=== PATIENT | female | born 1960 | race Caucasian/White ===

== ENCOUNTER 2017-11-21 08:27 | Inpatient (IN) | payer MEDICAID ==
[2017-11-21] VITALS (16 sets, daily range): BP systolic 102–127; BP diastolic 55–82
[~2017-11-21] VITALS: Ht 157.5 cm; Wt 84.8 kg
[2017-11-21] MEDS: K, MAG and/or Phos replacement - Verify level? MC SCH (08:00)
[2017-11-21] MEDS: pantoprazole 40 MG vial IV SCH (08:00)
[2017-11-21] MEDS ORDERED: normal saline 1000ML IV soln IV ONE (08:45)
[2017-11-21 09:45] LABS: BASOPHILS % (AUTO) 0.1 % (0-1); EOSINOPHILS % (AUTO) 0.1 % (0-6); HEMATOCRIT 42.4 % (35.0-45.0); HEMOGLOBIN 14.4 g/dl (12.0-16.0); LYMPHOCYTES # (AUTO) 0.8 X10'3 (1.1-4.8); MEAN CORPUSCULAR HEMOGLOBIN 29.2 PG (27.0-31.0); MEAN CORPUSCULAR HGB CONC 33.9 % (33.0-36.5); MEAN CORPUSCULAR VOLUME 86.1 FL (78-98); MEAN PLATELET VOLUME 8.3 FL (7.4-10.4); MONOCYTES # (AUTO) 0.3 X10'3 (0-0.9); NEUTROPHILS # (AUTO) 11.9 X10'3 (1.8-7.7); NEUTROPHILS % (AUTO) 91.8 % (42-75); PLATELET COUNT 276 X10'3 (140-440); RED BLOOD COUNT 4.92 X10'6 (4.20-5.60); RED CELL DISTRIBUTION WIDTH 14.8 % (11.5-14.5); WHITE BLOOD COUNT 12.9 X10'3 (4.5-11.0)
[2017-11-21 09:46] LABS: PARTIAL THROMBOPLASTIN TIME 32 SECONDS (22-32); PROTHROMBIN TIME 10.8 SECONDS (9.0-12.0)
[2017-11-21] MEDS ORDERED: BUPIVAcaine/PF 2.5mg/ml (0.25%) 10ml vial ONE (09:51)
[2017-11-21] MEDS ORDERED: LIDOcaine 1% 30ml preserv. free vial ONE (09:51)
[2017-11-21 09:52] LABS: ALANINE AMINOTRANSFERASE 17 U/L (12-78); ALBUMIN 2.3 G/DL (3.4-5.0); ALBUMIN/GLOBULIN RATIO 0.6 (1.1-1.5); ALKALINE PHOSPHATASE 85 IU/L (46-116); ANION GAP 9 (8-16); ASPARTATE AMINO TRANSFERASE 22 U/L (10-37); BILIRUBIN,TOTAL 0.5 MG/DL (0.1-1.0); BLOOD UREA NITROGEN 36 MG/DL (7-18); BUN/CREATININE RATIO 35.3 (6.6-38.0); CHLORIDE 98 MMOL/L (99-107); CREATININE 1.02 MG/DL (0.40-0.90); GLUCOSE 116 MG/DL (70-104); MAGNESIUM 1.9 MG/DL (1.5-2.4); POTASSIUM 3.2 MMOL/L (3.5-5.1); SODIUM 136 MMOL/L (135-145); TOTAL CARBON DIOXIDE 28.8 MMOL/L (24-32); TOTAL PROTEIN 6.3 G/DL (6.4-8.2); eGFR 56 ML/MIN
[2017-11-21] MEDS ORDERED: LIDOcaine 1%/PF (10mg/ml) 5ml vial ONE ×2 (09:54→10:20)
[2017-11-21 10:00] LABS: PLATELET ESTIMATE NORMAL; TOTAL CELLS COUNTED 100
[2017-11-21] MEDS ORDERED: ringers solution, lacted 1,000 ML IV ONE (10:04)
[2017-11-21] MEDS ORDERED: meperidine/PF 25mg/ml syringe IV PRN (10:05)
[2017-11-21] MEDS ORDERED: proMETHazine 25mg rectal suppository RC PRN (10:05)
[2017-11-21] MEDS ORDERED: fentaNYL/PF 50MCG/1 ML 2ML syringe IV PRN ×2 (10:05)
[2017-11-21] MEDS ORDERED: proCHLORperazine 10 MG/2 ml inj IV PRN (10:05)
[2017-11-21] MEDS ORDERED: ondansetron/PF 4mg/2ml inj IV PRN ×2 (10:05→16:05)
[2017-11-21] MEDS ORDERED: HYDROmorphone inj. 0.5 MG/0.5 ML DISP.SYRIN IV PRN ×2 (10:05)
[2017-11-21] MEDS ORDERED: hydrALAZINE 20mg/ml inj. IV PRN (10:05)
[2017-11-21] MEDS ORDERED: labetalol 20mg/4ml (5mg/ml) syringe IV PRN (10:05)
[2017-11-21] MEDS ORDERED: phenylephrine 10mg/ml inj IV ONE ×2 (10:15→10:25)
[2017-11-21] MEDS ORDERED: neostigmine methylsulfate 1 MG/ML 10ml vial ONE (10:15)
[2017-11-21] MEDS ORDERED: glycopyrrolate 0.2mg/ml inj ONE (10:15)
[2017-11-21] MEDS ORDERED: ondansetron/PF 4mg/2ml inj ONE (10:15)
[2017-11-21] MEDS ORDERED: sevoflurane 250ml liquid IH ONE (10:15)
[2017-11-21] MEDS ORDERED: rocuronium 10mg/ml inj IV ONE (10:20)
[2017-11-21] MEDS ORDERED: ePHEDrine 50MG/ML INJ. ONE (10:25)
[2017-11-21] MEDS ORDERED: midazolam 2 mg/2 ml injection ONE ×2 (10:25→13:16)
[2017-11-21] MEDS ORDERED: propofol inj 20 ML IV ONE (10:25)
[2017-11-21] MEDS ORDERED: dexamethasone sod phosphate 4mg/ml inj. ONE (10:25)
[2017-11-21] MEDS ORDERED: LIDOcaine 2% (20mg/ml) 5ml vial ONE (10:25)
[2017-11-21] MEDS ORDERED: HYDROmorphone 1 mg/ml syringe ONE ×2 (10:26→11:11)
[2017-11-21] MEDS ORDERED: ceFOXitin 1000 MG inj ONE (11:13)
[2017-11-21] MEDS ORDERED: ROPIVAcaine 0.5% (5mg/ml) 30ml vial ONE (11:17)
[2017-11-21] MEDS ORDERED: CADD PCA waste documentation MC PRN (14:05)
[2017-11-21] MEDS: Potassium Cl inj 20 MEQ in ringers solution, lacted 1,000 ML IV SCH ×2 (14:05→22:10)
[2017-11-21] MEDS ORDERED: naloxone 0.4 mg/ml inj IV PRN (14:05)
[2017-11-21] MEDS: propofol 1000mg/100ml bottle 100 ML IV PRN ×2 (14:19→15:43)
[2017-11-21] MEDS: HYDROmorphone/NS 1 mg/ml CADD 50 ML IV SCH (15:00)
[2017-11-21] MEDS ORDERED: sodium phosphate inj. 15 MMOL in dextrose 5%-water 150 ML IV PRN (16:05)
[2017-11-21] MEDS ORDERED: Neutra Phos packet PO PRN (16:05)
[2017-11-21] MEDS ORDERED: acetaminophen 325mg tablet PO PRN ×2 (16:05)
[2017-11-21] MEDS ORDERED: potassium Cl 20 mEq SR tablet PO PRN (16:05)
[2017-11-21] MEDS ORDERED: sodium phosphate inj. 30 MMOL in dextrose 5%-water 250 ML IV PRN (16:05)
[2017-11-21] MEDS ORDERED: magnesium 2GM in 50ml NS 50 ML IV PRN (16:05)
[2017-11-21] MEDS ORDERED: magnesium Cl slow-release 64mg tablet PO PRN (16:05)
[2017-11-21] MEDS ORDERED: ipratropium/albuterol 3ml nebule NEB PRN (16:05)
[2017-11-21] MEDS ORDERED: magnesium 4gm in 100ml NS 100 ML IV PRN (16:05)
[2017-11-21] MEDS: normal saline 1000ml 1,000 ML IV SCH ×2 (16:38→23:00)
[2017-11-21 17:40] LABS: ABG BASE EXCESS -7.3 mmol/L (-2.0-3.0); ABG OXYGEN SATURATION 97.5 % (95-98); ABG PCO2 (T) 21.9 mmHg (32.0-45.0); ABG PH (T) 7.453 (7.350-7.450); ABG PO2 (T) 102.4 mmHg (83-108); FCOHb 0.1 % (0.5-1.5); FLOW 55 L/min; FMetHb 0.3 % (0.3-1.12); FO2Hb 97.1 % (94-100); MINUTE VOLUME 10 L/min; PEEP 5 cm H2O; RESPIRATORY RATE 16 b/min; RESPIRATORY RATE (OBSERVED) 24 b/min; TIDAL VOLUME 500 mL; TOTAL HEMOGLOBIN 10.8 G/dl (12.0-16.0)
[2017-11-21 17:45] LABS: OXYGEN SATURATION (MIXED VEN) 67.5 % (60-80); PO2 MIXED VENOUS (TEMP COR) 33.7 mmHg (35-46)
[2017-11-21] MEDS: heparin, porcine 5000 units/ml vial SQ SCH (19:35)
[2017-11-21] MEDS ORDERED: propofol 1000mg/100ml bottle 100 ML IV PRN (19:35)
[2017-11-21] MEDS: FENTANYL-0.9 % NACL/PF 100 ML IV PRN (19:52)
[2017-11-21] MEDS: midazolam 100mg in NS 100ml 100 ML IV PRN (19:53)
[2017-11-21] MEDS ORDERED: piperacillin/tazo 3.375gm/50ml 50 ML IV SCH (20:00)
[2017-11-21 20:06] LABS: CLARITY,URINE SLIGHTLY CLOUDY (Clear); COLOR,URINE YELLOW (Yellow); GLUCOSE, URINE NEGATIVE (Neg); KETONES,URINE NEGATIVE (Neg); LEUKOCYTE ESTERASE ,URINE NEGATIVE (Neg); NITRITES, URINE NEGATIVE (Neg); OCCULT BLOOD,URINE MODERATE (Neg); PH,URINE 5.5 (4.8-8.0); PROTEIN,URINE 100 mg/dl (Neg); UROBILINOGEN,URINE 0.2 E.U/dL (0.2-1.0)
[2017-11-21 20:10] LABS: UA COLLECTION TYPE CLN CATCH MIDSTREAM
[2017-11-21 20:13] LABS: WBC,URINE NONE SEEN /HPF (0-4)
[2017-11-21 20:14] LABS: BACTERIA,URINE FEW /HPF (Neg); MUCUS STRANDS NONE SEEN /LPF (Neg); SQUAMOUS EPITHELIAL CELL,UR NONE SEEN /LPF (FEW)
[2017-11-21 20:15] LABS: AMORPHOUS URATES 3+
[2017-11-21] MEDS ORDERED: acetaminophen 650mg rectal suppository RC ONE (21:00)
[2017-11-22] VITALS (24 sets, daily range): BP systolic 93–117; BP diastolic 55–77
[2017-11-22 03:49] LABS: BASOPHILS % (AUTO) 0.1 % (0-1); EOSINOPHILS % (AUTO) 0.1 % (0-6); HEMOGLOBIN 11.8 g/dl (12.0-16.0); LYMPHOCYTES # (AUTO) 0.6 X10'3 (1.1-4.8); LYMPHOCYTES % (AUTO) 7.3 % (21-51); MEAN CORPUSCULAR HEMOGLOBIN 29.1 PG (27.0-31.0); MEAN CORPUSCULAR HGB CONC 33.6 % (33.0-36.5); MEAN CORPUSCULAR VOLUME 86.5 FL (78-98); MEAN PLATELET VOLUME 7.8 FL (7.4-10.4); MONOCYTES # (AUTO) 0.5 X10'3 (0-0.9); MONOCYTES % (AUTO) 5.8 % (2-12); NEUTROPHILS # (AUTO) 7.5 X10'3 (1.8-7.7); NEUTROPHILS % (AUTO) 86.7 % (42-75); PLATELET COUNT 257 X10'3 (140-440); RED BLOOD COUNT 4.05 X10'6 (4.20-5.60); RED CELL DISTRIBUTION WIDTH 14.9 % (11.5-14.5); WHITE BLOOD COUNT 8.6 X10'3 (4.5-11.0)
[2017-11-22 03:56] LABS: ABG BASE EXCESS 0.4 mmol/L (-2.0-3.0); ABG HCO3 25.3 mmol/L (22.0-26.0); ABG PCO2 (T) 42.4 mmHg (32.0-45.0); ABG PH (T) 7.396 (7.350-7.450); ABG PO2 (T) 69.7 mmHg (83-108); FCOHb 0.5 % (0.5-1.5); FMetHb 0.3 % (0.3-1.12); FO2Hb 92.3 % (94-100); PATIENT TEMPERATURE 37.3; PEEP 5 cm H2O; RESPIRATORY RATE 14 b/min; TIDAL VOLUME 500 mL; TOTAL HEMOGLOBIN 12.3 G/dl (12.0-16.0)
[2017-11-22 03:57] LABS: ALANINE AMINOTRANSFERASE 14 U/L (12-78); ALBUMIN 1.5 G/DL (3.4-5.0); ALBUMIN/GLOBULIN RATIO 0.4 (1.1-1.5); ALKALINE PHOSPHATASE 71 IU/L (46-116); ANION GAP 8 (8-16); ASPARTATE AMINO TRANSFERASE 20 U/L (10-37); BILIRUBIN,TOTAL 0.5 MG/DL (0.1-1.0); BLOOD UREA NITROGEN 40 MG/DL (7-18); BUN/CREATININE RATIO 22.5 (6.6-38.0); CALCIUM 7.8 MG/DL (8.5-10.1); CHLORIDE 104 MMOL/L (99-107); CREATININE 1.78 MG/DL (0.40-0.90); GLUCOSE 124 MG/DL (70-104); MAGNESIUM 1.8 MG/DL (1.5-2.4); PHOSPHORUS 4.2 MG/DL (2.3-4.5); POTASSIUM 4.2 MMOL/L (3.5-5.1); SODIUM 138 MMOL/L (135-145); TOTAL CARBON DIOXIDE 25.9 MMOL/L (24-32); TOTAL PROTEIN 5.1 G/DL (6.4-8.2); eGFR 29 ML/MIN
[2017-11-22 04:19] LABS: PARTIAL THROMBOPLASTIN TIME 33 SECONDS (22-32); PROTHROMBIN TIME 10.3 SECONDS (9.0-12.0)
[2017-11-22 05:25] LABS: PLATELET ESTIMATE NORMAL; TOTAL CELLS COUNTED 100
[2017-11-22] MEDS: normal saline 1000ml 1,000 ML IV SCH ×3 (05:40→15:00)
[2017-11-22] MEDS: Potassium Cl inj 20 MEQ in ringers solution, lacted 1,000 ML IV SCH ×2 (06:15→14:20)
[2017-11-22] MEDS: K, MAG and/or Phos replacement - Verify level? MC SCH (08:00)
[2017-11-22] MEDS: pantoprazole 40 MG vial IV SCH (08:03)
[2017-11-22] MEDS: heparin, porcine 5000 units/ml vial SQ SCH ×2 (08:03→20:17)
[2017-11-22] MEDS: piperacillin/tazo 3.375gm/50ml 50 ML IV SCH ×3 (08:03→15:57)
[2017-11-22] MEDS ORDERED: UNABLE TO OBTAIN (11:27)
[2017-11-22] MEDS ORDERED: mineral oil/petrolatum ophthal oint EACHEYE SCH (14:00)
[2017-11-22] MEDS: mineral oil/petrolatum ophthal oint EACHEYE SCH ×2 (15:57→20:17)
[2017-11-23] VITALS (24 sets, daily range): BP systolic 96–146; BP diastolic 51–94
[2017-11-23] MEDS: midazolam 100mg in NS 100ml 100 ML IV PRN (00:16)
[2017-11-23] MEDS: FENTANYL-0.9 % NACL/PF 100 ML IV PRN ×2 (00:17→17:55)
[2017-11-23] MEDS: piperacillin/tazo 3.375gm/50ml 50 ML IV SCH ×3 (00:17→15:56)
[2017-11-23] MEDS: normal saline 1000ml 1,000 ML IV SCH ×4 (01:44→20:35)
[2017-11-23] MEDS: mineral oil/petrolatum ophthal oint EACHEYE SCH ×4 (01:55→20:00)
[2017-11-23 03:21] LABS: BASOPHILS % (AUTO) 0.2 % (0-1); EOSINOPHILS # (AUTO) 0.1 X10'3 (0-0.9); HEMATOCRIT 27.6 % (35.0-45.0); HEMOGLOBIN 9.2 g/dl (12.0-16.0); LYMPHOCYTES # (AUTO) 0.7 X10'3 (1.1-4.8); LYMPHOCYTES % (AUTO) 10.8 % (21-51); MEAN CORPUSCULAR HGB CONC 33.3 % (33.0-36.5); MEAN CORPUSCULAR VOLUME 87.1 FL (78-98); MEAN PLATELET VOLUME 8.1 FL (7.4-10.4); MONOCYTES # (AUTO) 0.6 X10'3 (0-0.9); MONOCYTES % (AUTO) 8.6 % (2-12); NEUTROPHILS # (AUTO) 5.2 X10'3 (1.8-7.7); NEUTROPHILS % (AUTO) 78.4 % (42-75); PLATELET COUNT 209 X10'3 (140-440); RED BLOOD COUNT 3.16 X10'6 (4.20-5.60); WHITE BLOOD COUNT 6.7 X10'3 (4.5-11.0)
[2017-11-23 03:31] LABS: INR 0.9 INR; PARTIAL THROMBOPLASTIN TIME 31 SECONDS (22-32); PROTHROMBIN TIME 9.5 SECONDS (9.0-12.0)
[2017-11-23 03:46] LABS: ALANINE AMINOTRANSFERASE 12 U/L (12-78); ALBUMIN 1.3 G/DL (3.4-5.0); ALBUMIN/GLOBULIN RATIO 0.4 (1.1-1.5); ALKALINE PHOSPHATASE 61 IU/L (46-116); ANION GAP 7 (8-16); ASPARTATE AMINO TRANSFERASE 20 U/L (10-37); BILIRUBIN,TOTAL 0.3 MG/DL (0.1-1.0); BLOOD UREA NITROGEN 29 MG/DL (7-18); BUN/CREATININE RATIO 26.9 (6.6-38.0); CALCIUM 7.4 MG/DL (8.5-10.1); CHLORIDE 108 MMOL/L (99-107); CREATININE 1.08 MG/DL (0.40-0.90); GLUCOSE 83 MG/DL (70-104); MAGNESIUM 2.2 MG/DL (1.5-2.4); PHOSPHORUS 2.6 MG/DL (2.3-4.5); POTASSIUM 3.7 MMOL/L (3.5-5.1); SODIUM 140 MMOL/L (135-145); TOTAL CARBON DIOXIDE 24.8 MMOL/L (24-32); TOTAL PROTEIN 4.9 G/DL (6.4-8.2); eGFR 52 ML/MIN
[2017-11-23 04:11] LABS: ABG BASE EXCESS -1.9 mmol/L (-2.0-3.0); ABG HCO3 23.3 mmol/L (22.0-26.0); ABG OXYGEN SATURATION 95.9 % (95-98); ABG PCO2 (T) 40.8 mmHg (32.0-45.0); ABG PH (T) 7.373 (7.350-7.450); ABG PO2 (T) 88.7 mmHg (83-108); FCOHb 0.3 % (0.5-1.5); FMetHb 0.1 % (0.3-1.12); FO2Hb 95.5 % (94-100); MINUTE VOLUME 6 L/min; PATIENT TEMPERATURE 36.7; PEEP 5 cm H2O; RESPIRATORY RATE (OBSERVED) 12 b/min; TOTAL HEMOGLOBIN 7.8 G/dl (12.0-16.0)
[2017-11-23] MEDS: K, MAG and/or Phos replacement - Verify level? MC SCH (08:00)
[2017-11-23] MEDS: heparin, porcine 5000 units/ml vial SQ SCH ×2 (08:05→20:34)
[2017-11-23] MEDS: pantoprazole 40 MG vial IV SCH (08:05)
[2017-11-24] VITALS (18 sets, daily range): BP systolic 116–174; BP diastolic 67–93
[2017-11-24] MEDS: piperacillin/tazo 3.375gm/50ml 50 ML IV SCH ×4 (00:11→23:56)
[2017-11-24] MEDS: mineral oil/petrolatum ophthal oint EACHEYE SCH ×2 (02:00→07:36)
[2017-11-24] MEDS: normal saline 1000ml 1,000 ML IV SCH ×3 (03:52→23:52)
[2017-11-24 04:30] LABS: BASOPHILS % (AUTO) 0.2 % (0-1); EOSINOPHILS # (AUTO) 0.3 X10'3 (0-0.9); EOSINOPHILS % (AUTO) 3.2 % (0-6); HEMATOCRIT 28.6 % (35.0-45.0); HEMOGLOBIN 9.6 g/dl (12.0-16.0); LYMPHOCYTES # (AUTO) 0.9 X10'3 (1.1-4.8); LYMPHOCYTES % (AUTO) 10.6 % (21-51); MEAN CORPUSCULAR HEMOGLOBIN 28.8 PG (27.0-31.0); MEAN CORPUSCULAR HGB CONC 33.4 % (33.0-36.5); MEAN CORPUSCULAR VOLUME 86.2 FL (78-98); MEAN PLATELET VOLUME 7.1 FL (7.4-10.4); MONOCYTES # (AUTO) 0.7 X10'3 (0-0.9); MONOCYTES % (AUTO) 8.5 % (2-12); NEUTROPHILS # (AUTO) 6.3 X10'3 (1.8-7.7); NEUTROPHILS % (AUTO) 77.5 % (42-75); PLATELET COUNT 256 X10'3 (140-440); RED BLOOD COUNT 3.32 X10'6 (4.20-5.60); RED CELL DISTRIBUTION WIDTH 15.1 % (11.5-14.5); WHITE BLOOD COUNT 8.2 X10'3 (4.5-11.0)
[2017-11-24 04:38] LABS: INR 0.9 INR; PARTIAL THROMBOPLASTIN TIME 27 SECONDS (22-32); PROTHROMBIN TIME 9.4 SECONDS (9.0-12.0)
[2017-11-24 04:44] LABS: ALANINE AMINOTRANSFERASE 13 U/L (12-78); ALBUMIN 1.4 G/DL (3.4-5.0); ALBUMIN/GLOBULIN RATIO 0.4 (1.1-1.5); ALKALINE PHOSPHATASE 65 IU/L (46-116); ANION GAP 11 (8-16); ASPARTATE AMINO TRANSFERASE 18 U/L (10-37); BILIRUBIN,TOTAL 0.4 MG/DL (0.1-1.0); BLOOD UREA NITROGEN 21 MG/DL (7-18); BUN/CREATININE RATIO 27.6 (6.6-38.0); CALCIUM 7.7 MG/DL (8.5-10.1); CHLORIDE 109 MMOL/L (99-107); CREATININE 0.76 MG/DL (0.40-0.90); GLUCOSE 72 MG/DL (70-104); MAGNESIUM 2.1 MG/DL (1.5-2.4); PHOSPHORUS 2.1 MG/DL (2.3-4.5); SODIUM 143 MMOL/L (135-145); TOTAL CARBON DIOXIDE 23.2 MMOL/L (24-32); TOTAL PROTEIN 5.2 G/DL (6.4-8.2); eGFR 78 ML/MIN
[2017-11-24] MEDS ORDERED: potassium Cl 40MEQ/250ML bag 250 ML IV PRN (05:05)
[2017-11-24] MEDS: K, MAG and/or Phos replacement - Verify level? MC SCH (07:37)
[2017-11-24] MEDS: pantoprazole 40 MG vial IV SCH (07:37)
[2017-11-24] MEDS: heparin, porcine 5000 units/ml vial SQ SCH ×2 (07:40→21:42)
[2017-11-24] MEDS: potassium Cl 40MEQ/250ML bag 250 ML IV PRN ×2 (08:34→10:58)
[2017-11-24] MEDS ORDERED: fentaNYL 10MCG/ML in NS 50ML 50 ML IV SCH (10:40)
[2017-11-24] MEDS: [UNRECOGNIZED DRUG - OTHER] IV SCH ×7 (11:00→23:00)
[2017-11-24] MEDS: FENTANYL IV SCH ×7 (11:00→23:00)
[2017-11-25] VITALS: BP 171/93
[2017-11-25 00:30] VITALS: BP 155/92
[2017-11-25] MEDS: [UNRECOGNIZED DRUG - OTHER] IV SCH ×13 (01:00→23:00)
[2017-11-25] MEDS: FENTANYL IV SCH ×13 (01:00→23:00)
[2017-11-25 05:46] LABS: PARTIAL THROMBOPLASTIN TIME 26 SECONDS (22-32)
[2017-11-25 05:48] LABS: BASOPHILS # (AUTO) 0.1 X10'3 (0-0.2); BASOPHILS % (AUTO) 0.5 % (0-1); EOSINOPHILS # (AUTO) 0.3 X10'3 (0-0.9); EOSINOPHILS % (AUTO) 2.4 % (0-6); HEMATOCRIT 33.4 % (35.0-45.0); HEMOGLOBIN 11.4 g/dl (12.0-16.0); LYMPHOCYTES # (AUTO) 1.3 X10'3 (1.1-4.8); LYMPHOCYTES % (AUTO) 12.7 % (21-51); MEAN CORPUSCULAR HEMOGLOBIN 29.2 PG (27.0-31.0); MEAN CORPUSCULAR HGB CONC 34.2 % (33.0-36.5); MEAN CORPUSCULAR VOLUME 85.4 FL (78-98); MEAN PLATELET VOLUME 7.8 FL (7.4-10.4); MONOCYTES % (AUTO) 9.5 % (2-12); NEUTROPHILS # (AUTO) 7.9 X10'3 (1.8-7.7); NEUTROPHILS % (AUTO) 74.9 % (42-75); PLATELET COUNT 306 X10'3 (140-440); RED BLOOD COUNT 3.91 X10'6 (4.20-5.60); WHITE BLOOD COUNT 10.6 X10'3 (4.5-11.0)
[2017-11-25 06:10] LABS: ALANINE AMINOTRANSFERASE 16 U/L (12-78); ALBUMIN 1.6 G/DL (3.4-5.0); ALBUMIN/GLOBULIN RATIO 0.4 (1.1-1.5); ALKALINE PHOSPHATASE 86 IU/L (46-116); ANION GAP 16 (8-16); ASPARTATE AMINO TRANSFERASE 22 U/L (10-37); BILIRUBIN,TOTAL 0.5 MG/DL (0.1-1.0); BLOOD UREA NITROGEN 10 MG/DL (7-18); BUN/CREATININE RATIO 15.4 (6.6-38.0); CALCIUM 7.8 MG/DL (8.5-10.1); CHLORIDE 105 MMOL/L (99-107); CREATININE 0.65 MG/DL (0.40-0.90); GLUCOSE 88 MG/DL (70-104); MAGNESIUM 1.5 MG/DL (1.5-2.4); PHOSPHORUS 2.1 MG/DL (2.3-4.5); POTASSIUM 3.1 MMOL/L (3.5-5.1); SODIUM 141 MMOL/L (135-145); TOTAL CARBON DIOXIDE 20.2 MMOL/L (24-32); TOTAL PROTEIN 5.9 G/DL (6.4-8.2); eGFR > 90 ML/MIN
[2017-11-25 07:31] VITALS: BP 159/109
[2017-11-25] MEDS: K, MAG and/or Phos replacement - Verify level? MC SCH (08:00)
[2017-11-25] MEDS: pantoprazole 40 MG vial IV SCH (08:44)
[2017-11-25] MEDS: piperacillin/tazo 3.375gm/50ml 50 ML IV SCH ×2 (08:44→15:05)
[2017-11-25] MEDS: potassium Cl 20 mEq SR tablet PO PRN ×3 (08:44→19:34)
[2017-11-25] MEDS: heparin, porcine 5000 units/ml vial SQ SCH ×2 (08:45→19:34)
[2017-11-25] MEDS ORDERED: sodium phosphate inj. 15 MMOL in dextrose 5%-water 145 ML IV ONE (11:05)
[2017-11-25 11:30] VITALS: BP 120/78
[2017-11-25] MEDS: normal saline 1000ml 1,000 ML IV SCH ×2 (13:13→23:12)
[2017-11-25 18:00] VITALS: BP 124/78
[2017-11-25] MEDS: lactobacillus rhamnosus 10,000 MMU CELLS/CAPSULE PO SCH (19:33)
[2017-11-25] MEDS: proCHLORperazine 10 MG/2 ml inj IV PRN (23:25)
[2017-11-26] VITALS: BP 146/99
[2017-11-26] MEDS: piperacillin/tazo 3.375gm/50ml 50 ML IV SCH ×4 (00:14→23:46)
[2017-11-26] MEDS: FENTANYL IV SCH ×12 (01:00→23:00)
[2017-11-26] MEDS: [UNRECOGNIZED DRUG - OTHER] IV SCH ×12 (01:00→23:00)
[2017-11-26 05:21] LABS: BASOPHILS % (AUTO) 0.2 % (0-1); EOSINOPHILS # (AUTO) 0.3 X10'3 (0-0.9); EOSINOPHILS % (AUTO) 2.5 % (0-6); HEMATOCRIT 34.3 % (35.0-45.0); HEMOGLOBIN 11.8 g/dl (12.0-16.0); LYMPHOCYTES # (AUTO) 1.8 X10'3 (1.1-4.8); LYMPHOCYTES % (AUTO) 15.1 % (21-51); MEAN CORPUSCULAR HEMOGLOBIN 29.2 PG (27.0-31.0); MEAN CORPUSCULAR HGB CONC 34.4 % (33.0-36.5); MEAN CORPUSCULAR VOLUME 84.9 FL (78-98); MEAN PLATELET VOLUME 7.6 FL (7.4-10.4); MONOCYTES # (AUTO) 0.7 X10'3 (0-0.9); MONOCYTES % (AUTO) 5.7 % (2-12); NEUTROPHILS # (AUTO) 8.9 X10'3 (1.8-7.7); NEUTROPHILS % (AUTO) 76.5 % (42-75); PLATELET COUNT 343 X10'3 (140-440); RED BLOOD COUNT 4.04 X10'6 (4.20-5.60); WHITE BLOOD COUNT 11.6 X10'3 (4.5-11.0)
[2017-11-26 05:26] LABS: PARTIAL THROMBOPLASTIN TIME 26 SECONDS (22-32); PROTHROMBIN TIME 10.3 SECONDS (9.0-12.0)
[2017-11-26 05:32] LABS: ALANINE AMINOTRANSFERASE 30 U/L (12-78); ALBUMIN 1.8 G/DL (3.4-5.0); ALBUMIN/GLOBULIN RATIO 0.4 (1.1-1.5); ALKALINE PHOSPHATASE 91 IU/L (46-116); ANION GAP 9 (8-16); ASPARTATE AMINO TRANSFERASE 37 U/L (10-37); BILIRUBIN,TOTAL 0.4 MG/DL (0.1-1.0); BLOOD UREA NITROGEN 6 MG/DL (7-18); BUN/CREATININE RATIO 8.8 (6.6-38.0); CHLORIDE 104 MMOL/L (99-107); CREATININE 0.68 MG/DL (0.40-0.90); GLUCOSE 112 MG/DL (70-104); MAGNESIUM 1.4 MG/DL (1.5-2.4); PHOSPHORUS 2.9 MG/DL (2.3-4.5); POTASSIUM 3.1 MMOL/L (3.5-5.1); RED BLOOD COUNT 4.02 X10'6 (4.20-5.60); RETICULOCYTE % (AUTO) 1.9 % (0.5-1.5); SODIUM 139 MMOL/L (135-145); TOTAL CARBON DIOXIDE 26.2 MMOL/L (24-32); TOTAL PROTEIN 5.9 G/DL (6.4-8.2); eGFR 89 ML/MIN
[2017-11-26 06:38] LABS: NUCLEATED RED BLOOD CELLS 1 /100WBC (0-0); TOTAL CELLS COUNTED 100
[2017-11-26 06:39] LABS: ANISOCYTOSIS 1+; PLATELET ESTIMATE NORMAL; POLYCHROMASIA 1+; TOXIC GRANULATION 2+; TOXIC VACUOLATION FEW
[2017-11-26 07:00] VITALS: BP 143/90
[2017-11-26] MEDS: pantoprazole 40 MG vial IV SCH (07:18)
[2017-11-26] MEDS: lactobacillus rhamnosus 10,000 MMU CELLS/CAPSULE PO SCH ×2 (07:18→19:03)
[2017-11-26] MEDS: K, MAG and/or Phos replacement - Verify level? MC SCH (07:19)
[2017-11-26] MEDS: heparin, porcine 5000 units/ml vial SQ SCH ×2 (07:19→19:03)
[2017-11-26] MEDS: potassium Cl 20 mEq SR tablet PO PRN ×3 (07:20→19:03)
[2017-11-26] MEDS ORDERED: magnesium 4gm in 100ml NS 100 ML IV PRN (10:35)
[2017-11-26] MEDS ORDERED: magnesium 2GM in 50ml NS 50 ML IV PRN (10:35)
[2017-11-26] MEDS ORDERED: potassium Cl 40MEQ/NS 500ml 500 ML IV PRN ×2 (10:35)
[2017-11-26 11:00] VITALS: BP 136/90
[2017-11-26] MEDS: magnesium Cl slow-release 64mg tablet PO PRN ×2 (12:19→19:03)
[2017-11-26] MEDS: normal saline 1000ml 1,000 ML IV SCH (15:45)
[2017-11-26] MEDS: CADD PCA waste documentation MC SCH (16:00)
[2017-11-26 18:00] VITALS: BP 117/60
[2017-11-26] MEDS: proCHLORperazine 10 MG/2 ml inj IV PRN (19:02)
[2017-11-27] VITALS: BP 140/86
[2017-11-27] MEDS: FENTANYL IV SCH ×2 (01:00→03:00)
[2017-11-27] MEDS: [UNRECOGNIZED DRUG - OTHER] IV SCH ×2 (01:00→03:00)
[2017-11-27] MEDS: normal saline 1000ml 1,000 ML IV SCH (04:49)
[2017-11-27 05:30] LABS: PARTIAL THROMBOPLASTIN TIME 25 SECONDS (22-32); PROTHROMBIN TIME 10.6 SECONDS (9.0-12.0)
[2017-11-27 05:55] LABS: ALANINE AMINOTRANSFERASE 44 U/L (12-78); ALBUMIN 1.8 G/DL (3.4-5.0); ALBUMIN/GLOBULIN RATIO 0.5 (1.1-1.5); ALKALINE PHOSPHATASE 82 IU/L (46-116); ANION GAP 11 (8-16); ASPARTATE AMINO TRANSFERASE 53 U/L (10-37); BILIRUBIN,TOTAL 0.4 MG/DL (0.1-1.0); BLOOD UREA NITROGEN 7 MG/DL (7-18); BUN/CREATININE RATIO 10.8 (6.6-38.0); CALCIUM 7.9 MG/DL (8.5-10.1); CHLORIDE 109 MMOL/L (99-107); CREATININE 0.65 MG/DL (0.40-0.90); GLUCOSE 103 MG/DL (70-104); MAGNESIUM 1.5 MG/DL (1.5-2.4); PHOSPHORUS 2.7 MG/DL (2.3-4.5); POTASSIUM 3.6 MMOL/L (3.5-5.1); SODIUM 143 MMOL/L (135-145); TOTAL CARBON DIOXIDE 23.2 MMOL/L (24-32); TOTAL PROTEIN 5.6 G/DL (6.4-8.2); eGFR > 90 ML/MIN
[2017-11-27 07:14] VITALS: BP 145/83
[2017-11-27] MEDS: K, MAG and/or Phos replacement - Verify level? MC SCH (08:00)
[2017-11-27] MEDS: piperacillin/tazo 3.375gm/50ml 50 ML IV SCH ×2 (09:32→16:34)
[2017-11-27] MEDS: ferrous sulfate 325mg tablet PO SCH (10:58)
[2017-11-27] MEDS: lactobacillus rhamnosus 10,000 MMU CELLS/CAPSULE PO SCH ×2 (10:58→19:58)
[2017-11-27] MEDS: heparin, porcine 5000 units/ml vial SQ SCH ×2 (10:59→19:58)
[2017-11-27] MEDS ORDERED: HYDROcodone/acetaminophen 5mg/325mg tablet PO PRN (11:40)
[2017-11-27 12:00] VITALS: BP 115/74
[2017-11-27] MEDS: CADD PCA waste documentation MC SCH (12:27)
[2017-11-27] MEDS ORDERED: NO HOME MEDS (12:30)
[2017-11-27] MEDS: HYDROcodone/acetaminophen 10/325mg tab PO PRN ×3 (12:54→20:16)
[2017-11-27] MEDS: proCHLORperazine 10 MG/2 ml inj IV PRN (16:34)
[2017-11-27 18:00] VITALS: BP 116/67
[2017-11-27] MEDS: LORazepam 2 mg/ml vial IV PRN (19:54)
[2017-11-28] VITALS: BP 111/69
[2017-11-28] MEDS: piperacillin/tazo 3.375gm/50ml 50 ML IV SCH ×3 (00:29→16:38)
[2017-11-28 05:39] LABS: PARTIAL THROMBOPLASTIN TIME 26 SECONDS (22-32); PROTHROMBIN TIME 10.1 SECONDS (9.0-12.0)
[2017-11-28 05:53] LABS: ALANINE AMINOTRANSFERASE 52 U/L (12-78); ALBUMIN 1.8 G/DL (3.4-5.0); ALBUMIN/GLOBULIN RATIO 0.5 (1.1-1.5); ALKALINE PHOSPHATASE 85 IU/L (46-116); ANION GAP 10 (8-16); ASPARTATE AMINO TRANSFERASE 49 U/L (10-37); BILIRUBIN,TOTAL 0.4 MG/DL (0.1-1.0); BLOOD UREA NITROGEN 10 MG/DL (7-18); BUN/CREATININE RATIO 15.6 (6.6-38.0); CALCIUM 8.2 MG/DL (8.5-10.1); CHLORIDE 109 MMOL/L (99-107); CREATININE 0.64 MG/DL (0.40-0.90); GLUCOSE 100 MG/DL (70-104); MAGNESIUM 1.5 MG/DL (1.5-2.4); PHOSPHORUS 3.1 MG/DL (2.3-4.5); POTASSIUM 3.5 MMOL/L (3.5-5.1); SODIUM 143 MMOL/L (135-145); TOTAL CARBON DIOXIDE 23.9 MMOL/L (24-32); TOTAL PROTEIN 5.5 G/DL (6.4-8.2); eGFR > 90 ML/MIN
[2017-11-28] MEDS: HYDROcodone/acetaminophen 10/325mg tab PO PRN ×4 (06:21→21:37)
[2017-11-28 06:54] VITALS: BP 114/70
[2017-11-28] MEDS: K, MAG and/or Phos replacement - Verify level? MC SCH (08:00)
[2017-11-28 08:01] LABS: BASOPHILS # (AUTO) 0.1 X10'3 (0-0.2); BASOPHILS % (AUTO) 1.2 % (0-1); EOSINOPHILS # (AUTO) 0.2 X10'3 (0-0.9); EOSINOPHILS % (AUTO) 1.9 % (0-6); HEMATOCRIT 30.2 % (35.0-45.0); HEMOGLOBIN 10.3 g/dl (12.0-16.0); LYMPHOCYTES # (AUTO) 1.7 X10'3 (1.1-4.8); LYMPHOCYTES % (AUTO) 14.8 % (21-51); MEAN CORPUSCULAR HEMOGLOBIN 28.7 PG (27.0-31.0); MEAN CORPUSCULAR HGB CONC 33.9 % (33.0-36.5); MEAN CORPUSCULAR VOLUME 84.7 FL (78-98); MEAN PLATELET VOLUME 7.4 FL (7.4-10.4); MONOCYTES # (AUTO) 0.7 X10'3 (0-0.9); MONOCYTES % (AUTO) 5.7 % (2-12); NEUTROPHILS # (AUTO) 8.8 X10'3 (1.8-7.7); NEUTROPHILS % (AUTO) 76.4 % (42-75); PLATELET COUNT 328 X10'3 (140-440); RED BLOOD COUNT 3.57 X10'6 (4.20-5.60); RED CELL DISTRIBUTION WIDTH 15.5 % (11.5-14.5); WHITE BLOOD COUNT 11.5 X10'3 (4.5-11.0)
[2017-11-28 08:04] LABS: ALBUMIN 1.8 G/DL (3.4-5.0); ANION GAP 10 (8-16); BLOOD UREA NITROGEN 10 MG/DL (7-18); BUN/CREATININE RATIO 15.9 (6.6-38.0); CHLORIDE 109 MMOL/L (99-107); CREATININE 0.63 MG/DL (0.40-0.90); GLUCOSE 102 MG/DL (70-104); POTASSIUM 3.6 MMOL/L (3.5-5.1); SODIUM 142 MMOL/L (135-145); TOTAL CARBON DIOXIDE 23.5 MMOL/L (24-32); eGFR > 90 ML/MIN
[2017-11-28] MEDS: lactobacillus rhamnosus 10,000 MMU CELLS/CAPSULE PO SCH ×2 (09:13→21:35)
[2017-11-28] MEDS: heparin, porcine 5000 units/ml vial SQ SCH ×2 (09:13→21:36)
[2017-11-28] MEDS: ferrous sulfate 325mg tablet PO SCH (09:13)
[2017-11-28 10:48] VITALS: BP 126/80
[2017-11-28] MEDS: proCHLORperazine 10 MG/2 ml inj IV PRN (17:56)
[2017-11-28 19:00] VITALS: BP 101/58
[2017-11-28] MEDS: LORazepam 2 mg/ml vial IV PRN (22:01)
[2017-11-29] VITALS: BP 125/85
[2017-11-29] MEDS: HYDROcodone/acetaminophen 10/325mg tab PO PRN ×3 (04:32→20:02)
[2017-11-29 05:25] LABS: BASOPHILS % (AUTO) 0.3 % (0-1); EOSINOPHILS # (AUTO) 0.2 X10'3 (0-0.9); EOSINOPHILS % (AUTO) 1.6 % (0-6); HEMATOCRIT 29.9 % (35.0-45.0); HEMOGLOBIN 10.1 g/dl (12.0-16.0); LYMPHOCYTES # (AUTO) 1.6 X10'3 (1.1-4.8); LYMPHOCYTES % (AUTO) 14.6 % (21-51); MEAN CORPUSCULAR VOLUME 85.2 FL (78-98); MEAN PLATELET VOLUME 7.9 FL (7.4-10.4); MONOCYTES % (AUTO) 8.5 % (2-12); NEUTROPHILS # (AUTO) 8.5 X10'3 (1.8-7.7); PLATELET COUNT 340 X10'3 (140-440); RED CELL DISTRIBUTION WIDTH 15.2 % (11.5-14.5); WHITE BLOOD COUNT 11.3 X10'3 (4.5-11.0)
[2017-11-29 05:30] LABS: PARTIAL THROMBOPLASTIN TIME 26 SECONDS (22-32)
[2017-11-29 05:44] LABS: ALANINE AMINOTRANSFERASE 51 U/L (12-78); ALBUMIN 1.9 G/DL (3.4-5.0); ALBUMIN/GLOBULIN RATIO 0.5 (1.1-1.5); ALKALINE PHOSPHATASE 79 IU/L (46-116); ANION GAP 9 (8-16); ASPARTATE AMINO TRANSFERASE 43 U/L (10-37); BILIRUBIN,TOTAL 0.3 MG/DL (0.1-1.0); BLOOD UREA NITROGEN 10 MG/DL (7-18); BUN/CREATININE RATIO 15.2 (6.6-38.0); CALCIUM 8.2 MG/DL (8.5-10.1); CHLORIDE 111 MMOL/L (99-107); CREATININE 0.66 MG/DL (0.40-0.90); GLUCOSE 97 MG/DL (70-104); MAGNESIUM 1.6 MG/DL (1.5-2.4); PHOSPHORUS 2.9 MG/DL (2.3-4.5); POTASSIUM 3.5 MMOL/L (3.5-5.1); SODIUM 144 MMOL/L (135-145); TOTAL CARBON DIOXIDE 24.4 MMOL/L (24-32); TOTAL PROTEIN 5.7 G/DL (6.4-8.2); eGFR > 90 ML/MIN
[2017-11-29 07:16] VITALS: BP 124/79
[2017-11-29] MEDS: heparin, porcine 5000 units/ml vial SQ SCH ×2 (07:49→20:04)
[2017-11-29] MEDS: proCHLORperazine 10 MG/2 ml inj IV PRN (07:49)
[2017-11-29] MEDS: lactobacillus rhamnosus 10,000 MMU CELLS/CAPSULE PO SCH ×2 (07:50→20:04)
[2017-11-29] MEDS: ferrous sulfate 325mg tablet PO SCH (07:50)
[2017-11-29] MEDS: K, MAG and/or Phos replacement - Verify level? MC SCH (08:00)
[2017-11-29 11:28] VITALS: BP 110/59
[2017-11-29] MEDS: mag hydrox/Alum hydrox/simeth 30ml oral suspension PO PRN ×2 (12:29→17:55)
[2017-11-29] MEDS: LORazepam 2 mg/ml vial IV PRN (13:40)
[2017-11-29] MEDS ORDERED: magnesium oxide 400mg tablet PO ONE (15:55)
[2017-11-29 19:00] VITALS: BP 111/76
[2017-11-29] MEDS: LORazepam 0.5 MG tablet PO PRN (20:40)
[2017-11-30] VITALS: BP 115/71
[2017-11-30] MEDS: HYDROcodone/acetaminophen 10/325mg tab PO PRN ×3 (03:33→17:11)
[2017-11-30] MEDS: LORazepam 0.5 MG tablet PO PRN ×3 (03:33→20:01)
[2017-11-30 06:10] LABS: BASOPHILS % (AUTO) 0.3 % (0-1); EOSINOPHILS # (AUTO) 0.2 X10'3 (0-0.9); EOSINOPHILS % (AUTO) 2.2 % (0-6); HEMATOCRIT 29.5 % (35.0-45.0); HEMOGLOBIN 9.9 g/dl (12.0-16.0); LYMPHOCYTES # (AUTO) 1.7 X10'3 (1.1-4.8); LYMPHOCYTES % (AUTO) 15.7 % (21-51); MEAN CORPUSCULAR HEMOGLOBIN 28.5 PG (27.0-31.0); MEAN CORPUSCULAR HGB CONC 33.6 % (33.0-36.5); MEAN CORPUSCULAR VOLUME 84.8 FL (78-98); MEAN PLATELET VOLUME 8.1 FL (7.4-10.4); MONOCYTES # (AUTO) 0.9 X10'3 (0-0.9); MONOCYTES % (AUTO) 8.3 % (2-12); NEUTROPHILS # (AUTO) 8.2 X10'3 (1.8-7.7); NEUTROPHILS % (AUTO) 73.5 % (42-75); PLATELET COUNT 369 X10'3 (140-440); RED BLOOD COUNT 3.48 X10'6 (4.20-5.60); RED CELL DISTRIBUTION WIDTH 15.2 % (11.5-14.5); WHITE BLOOD COUNT 11.1 X10'3 (4.5-11.0)
[2017-11-30 06:27] LABS: PARTIAL THROMBOPLASTIN TIME 27 SECONDS (22-32); PROTHROMBIN TIME 9.9 SECONDS (9.0-12.0)
[2017-11-30 06:40] LABS: ALANINE AMINOTRANSFERASE 48 U/L (12-78); ALBUMIN/GLOBULIN RATIO 0.5 (1.1-1.5); ALKALINE PHOSPHATASE 97 IU/L (46-116); ANION GAP 9 (8-16); ASPARTATE AMINO TRANSFERASE 41 U/L (10-37); BILIRUBIN,TOTAL 0.2 MG/DL (0.1-1.0); BLOOD UREA NITROGEN 10 MG/DL (7-18); BUN/CREATININE RATIO 14.3 (6.6-38.0); CALCIUM 8.2 MG/DL (8.5-10.1); CHLORIDE 110 MMOL/L (99-107); GLUCOSE 109 MG/DL (70-104); MAGNESIUM 1.8 MG/DL (1.5-2.4); PHOSPHORUS 2.7 MG/DL (2.3-4.5); POTASSIUM 3.5 MMOL/L (3.5-5.1); SODIUM 144 MMOL/L (135-145); TOTAL CARBON DIOXIDE 24.9 MMOL/L (24-32); TOTAL PROTEIN 5.9 G/DL (6.4-8.2); eGFR 86 ML/MIN
[2017-11-30 06:55] VITALS: BP 109/67
[2017-11-30] MEDS: heparin, porcine 5000 units/ml vial SQ SCH ×2 (07:41→20:01)
[2017-11-30] MEDS: lactobacillus rhamnosus 10,000 MMU CELLS/CAPSULE PO SCH ×2 (07:41→20:01)
[2017-11-30] MEDS: mag hydrox/Alum hydrox/simeth 30ml oral suspension PO PRN ×2 (07:41→12:27)
[2017-11-30] MEDS: ferrous sulfate 325mg tablet PO SCH (07:41)
[2017-11-30 11:28] VITALS: BP 116/68
[2017-11-30 19:00] VITALS: BP 113/69
[2017-12-01] VITALS: BP 125/86
[2017-12-01] MEDS: HYDROcodone/acetaminophen 10/325mg tab PO PRN ×3 (00:30→12:17)
[2017-12-01 05:27] LABS: BASOPHILS % (AUTO) 0.3 % (0-1); EOSINOPHILS # (AUTO) 0.2 X10'3 (0-0.9); HEMOGLOBIN 10.4 g/dl (12.0-16.0); LYMPHOCYTES # (AUTO) 2.1 X10'3 (1.1-4.8); LYMPHOCYTES % (AUTO) 18.5 % (21-51); MEAN CORPUSCULAR HEMOGLOBIN 28.7 PG (27.0-31.0); MEAN CORPUSCULAR HGB CONC 33.5 % (33.0-36.5); MEAN CORPUSCULAR VOLUME 85.8 FL (78-98); MEAN PLATELET VOLUME 8.2 FL (7.4-10.4); MONOCYTES # (AUTO) 0.9 X10'3 (0-0.9); MONOCYTES % (AUTO) 7.7 % (2-12); NEUTROPHILS # (AUTO) 8.2 X10'3 (1.8-7.7); NEUTROPHILS % (AUTO) 71.5 % (42-75); PLATELET COUNT 360 X10'3 (140-440); RED BLOOD COUNT 3.62 X10'6 (4.20-5.60); RED CELL DISTRIBUTION WIDTH 15.7 % (11.5-14.5); WHITE BLOOD COUNT 11.5 X10'3 (4.5-11.0)
[2017-12-01 05:45] LABS: PARTIAL THROMBOPLASTIN TIME 26 SECONDS (22-32); PROTHROMBIN TIME 9.9 SECONDS (9.0-12.0)
[2017-12-01 06:06] LABS: ALANINE AMINOTRANSFERASE 46 U/L (12-78); ALBUMIN 2.1 G/DL (3.4-5.0); ALBUMIN/GLOBULIN RATIO 0.5 (1.1-1.5); ALKALINE PHOSPHATASE 89 IU/L (46-116); ANION GAP 9 (8-16); ASPARTATE AMINO TRANSFERASE 35 U/L (10-37); BILIRUBIN,TOTAL 0.3 MG/DL (0.1-1.0); BLOOD UREA NITROGEN 11 MG/DL (7-18); BUN/CREATININE RATIO 15.5 (6.6-38.0); CALCIUM 8.1 MG/DL (8.5-10.1); CHLORIDE 108 MMOL/L (99-107); CREATININE 0.71 MG/DL (0.40-0.90); GLUCOSE 96 MG/DL (70-104); POTASSIUM 3.8 MMOL/L (3.5-5.1); SODIUM 141 MMOL/L (135-145); TOTAL PROTEIN 6.1 G/DL (6.4-8.2); eGFR 85 ML/MIN
[2017-12-01 07:00] VITALS: BP 120/75
[2017-12-01] MEDS: lactobacillus rhamnosus 10,000 MMU CELLS/CAPSULE PO SCH (08:31)
[2017-12-01] MEDS: ferrous sulfate 325mg tablet PO SCH (08:31)
[2017-12-01] MEDS: heparin, porcine 5000 units/ml vial SQ SCH (08:32)
[2017-12-01] MEDS: LORazepam 0.5 MG tablet PO PRN (08:40)
[2017-12-01 11:00] VITALS: BP 104/60
[2017-12-01 11:36] VITALS: BP 104/60
== END 2017-12-01 13:14 | DRG 221 ==
LOC: ER 08:28 → CICU 2S 14:05 → SUR 3N 11-24 17:22
PROVIDERS: ADMIT Surgery; ATTEND Family Medicine
PROC: 0D1M0Z4 Bypass Descending Colon to Cutaneous, Open Approach (ICD-10-PCS; 2017-11-21)
PROC: 0DBM0ZZ Excision of Descending Colon, Open Approach (ICD-10-PCS; 2017-11-21)
PROC: 0DNN0ZZ Release Sigmoid Colon, Open Approach (ICD-10-PCS; 2017-11-21)
PROC: 5A1945Z Respiratory Ventilation, 24-96 Consecutive Hours (ICD-10-PCS; 2017-11-21)
PROC: 0BH17EZ Insertion of Endotracheal Airway into Trachea, Via Natural or Artificial Opening (ICD-10-PCS; 2017-11-21)
PROC: 02H633Z Insertion of Infusion Device into Right Atrium, Percutaneous Approach (ICD-10-PCS; 2017-11-21)
PROC: 0DBN0ZZ Excision of Sigmoid Colon, Open Approach (ICD-10-PCS; principal; 2017-11-21 10:25)
DX: K57.80 Diverticulitis of intestine, part unspecified, with perforation and abscess without bleeding (principal); J96.00 Acute respiratory failure, unspecified whether with hypoxia or hypercapnia; K55.9 Vascular disorder of intestine, unspecified; E83.39 Other disorders of phosphorus metabolism; E66.9 Obesity, unspecified; E87.6 Hypokalemia; F15.10 Other stimulant abuse, uncomplicated; D25.9 Leiomyoma of uterus, unspecified; D64.9 Anemia, unspecified; F17.210 Nicotine dependence, cigarettes, uncomplicated; I10 Essential (primary) hypertension; K21.9 Gastro-esophageal reflux disease without esophagitis; G89.29 Other chronic pain; Z68.34 Body mass index [BMI] 34.0-34.9, adult
CPT/HCPCS: 36415; 36600; 71045; 80048; 80053; 81001; 82570; 82607; 82728; 82746; 82803; 82810; 83540; 83550; 83605; 83735; 83935; 84100; 84132; 84145; 84300; 84443; 85018; 85025; 85045; 85610; 85730; 86885; 86900; 86901; 87040; 87070; 93005; 94002; 94003; 94668; 94760; 96360; 96361; 97116; 97161; 97530; 99291; A4421; A4649; A6213; A6253; A6257; A6258; A6446; A6449; A7000; C1758; C9113; J0694; J0780; J1100; J1170; J1644; J2001; J2060; J2175; J2250; J2370; J2405; J2543; J2704; J2710; J2795; J3010; J3480; J3490; J7030; J7060; J7120